=== PATIENT | male | born 1975 | race Asian ===

== ENCOUNTER 2017-09-30 21:31 | Emergency (ER) | payer OTHER ==
[~2017-09-30] VITALS: Ht 177.8 cm; Wt 77.1 kg
[2017-09-30 21:36] VITALS: BP 146/68
--- NOTE | 2017-09-30 21:50 | NUR ---
PT TAKEN TO XRAY
--- NOTE | 2017-09-30 21:55 | NUR ---
PT RETURN TO LOBBY FROM XRAY
--- NOTE | 2017-09-30 22:23 | NUR ---
42/M BIB BROTHER, C/O 8/10 CHEST PAIN, RADIATING TO L NECK, L SHOULDER AND BACK, PT REPORTS UPPER BACK THE WORST, STARTED X5 DAYS, WORSENING X1 DAY, EXACERBATED BY SITTING, PT REPORTS TAKING TYLENOL AND IBUPROFEN WITHOUT RELIEF AT 1999. PT ALSO TRIED TO RELIEVE PAIN AFTER THE ONSET OF PAIN WITH "HAND-VACUUM SUCTION CUP" WITHOUT RELIEF, CUP-SHAPED BRUISES NOTED ON L UPPER ARM AND THROUGHOUT BACK. PT DENIES SOB, N/V/D OR FEVER. 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 AOX4, AMBULATORY, RESPIRATIONS EVEN AND UNLABORED. PT POSITIONED FOR COMFORT. ER MD DR BROUSSARD MADE AWARE.
[2017-09-30] MEDS ORDERED: KETOROLAC 60 MG/2 ML VIAL IM ONE (23:45)
[2017-10-01 00:29] VITALS: BP 130/80
== END 2017-10-01 00:15 | disposition home or self-care (01) ==
LOC: MED 21:31
DX: M54.6 Pain in thoracic spine (principal); I10 Essential (primary) hypertension
CPT/HCPCS: 71045; 93005; 96372; 99284; J1885